=== PATIENT | male | born 1960 | race African-American/Black ===

== ENCOUNTER 2021-07-12 08:52 | Emergency (ER) | payer OTHER ==
[2021-07-12] MEDS ORDERED: Proparacaine 0.5% Opth 15 ML BOT ONE (09:14)
[2021-07-12] MEDS ORDERED: Fluorescein Opthalmic Strip ONE (09:34)
[2021-07-12] MEDS ORDERED: Albuterol Sulfate 2.5 mg/3 ml Neb ONE (09:38)
== END 2021-07-12 11:10 ==
LOC: ERS 08:52
DX: H10.9 Unspecified conjunctivitis (principal); I10 Essential (primary) hypertension
CPT/HCPCS: 94640; 99283; J7611